=== PATIENT | male | born 1985 | race Caucasian/White ===

== ENCOUNTER → 2016-08-14 | Outpatient (CLI) | payer OTHER ==
[2016-08-14 09:49] LABS: BUN/CREATININE RATIO 11 (0-10)
== END ==
LOC: LAB 08:37
PROVIDERS: Internal Medicine Nephrology
DX: N02.8 Recurrent and persistent hematuria with other morphologic changes (principal)
CPT/HCPCS: 36415; 80053; 81001; 82043; 82570; 84156

== ENCOUNTER → 2016-09-25 | Outpatient (CLI) | payer OTHER | LOC: LAB 08:17 | PROVIDERS: Internal Medicine Nephrology | DX: N02.8 Recurrent and persistent hematuria with other morphologic changes (principal) | CPT/HCPCS: 36415; 80053 ==

== ENCOUNTER → 2021-01-09 | Outpatient (CLI) | payer OTHER ==
[2021-01-10 09:14] LABS: CREATININE, URINE 87.6 mg/dL (Not Estab.)
== END ==
LOC: LAB 11:40
PROVIDERS: Internal Medicine Nephrology
DX: N02.8 Recurrent and persistent hematuria with other morphologic changes (principal)
CPT/HCPCS: 36415; 80053; 81001; 82043; 82570; 84156

== ENCOUNTER → 2021-09-16 | Outpatient (CLI) | payer OTHER ==
[2021-09-17 11:17] LABS: CREATININE, URINE 98.5 mg/dL (Not Estab.)
== END ==
LOC: LAB 09:47
PROVIDERS: Internal Medicine Nephrology
DX: N18.32 Chronic kidney disease, stage 3b (principal)
CPT/HCPCS: 36415; 80053; 82043; 82570; 84156